=== PATIENT | male | born 1990 | race American Indian/Alaskan Native ===

== ENCOUNTER 2024-06-13 12:57 | Emergency (ER) | payer OTHER ==
[~2024-06-13] VITALS: Ht 170.2 cm; Wt 74.4 kg
== END 2024-06-13 14:13 | disposition home or self-care (01) ==
LOC: ER 12:57
DX: J06.9 Acute upper respiratory infection, unspecified (principal)
CPT/HCPCS: 99283

== ENCOUNTER 2024-07-29 18:26 | Observation (INO) | payer OTHER ==
[~2024-07-29] VITALS: Ht 167.6 cm; Wt 70.4 kg
[2024-07-29 18:58] LABS: BASOPHILS ABSOLUTE AUTO 0.06 K/mm3 (0.00-0.23); BASOPHILS PERCENT AUTO 0 % (0-2); EOSINOPHILS ABSOLUTE AUTO 0.03 K/mm3 (0.00-0.68); EOSINOPHILS PERCENT AUTO 0 % (0-6); Hematocrit 37.3 % (37.0-53.0); Hemoglobin 12.8 g/dL (13.5-17.5); IMMATURE GRAN ABSOLUTE AUTO 0.06 K/mm3 (0.00-0.10); IMMATURE GRAN PERCENT AUTO 0 % (0-1); LYMPHOCYTES ABSOLUTE AUTO 1.68 K/mm3 (0.84-5.20); LYMPHOCYTES PERCENT AUTO 12 % (21-46); MONOCYTES ABSOLUTE AUTO 0.37 K/mm3 (0.16-1.47); MONOCYTES PERCENT AUTO 3 % (4-13); Mean Corpuscular HGB 29.2 pg (26.0-34.0); Mean Corpuscular HGB Conc 34.3 g/dL (31.5-36.5); Mean Corpuscular Volume 85 fL (80-100); Mean Platelet Volume 11.7 fL (9.1-12.4); NEUTROPHILS PERCENT AUTO 85 % (41-73); Platelet Count 252 K/mm3 (150-400); RDW Coefficient Variation 12.5 % (11.7-14.2); RDW Standard Deviation 38.9 fL (35.1-46.3); Red Blood Cell Count 4.39 M/mm3 (4.30-5.90)
[2024-07-29] MEDS ORDERED: Lactated Ringer's 1,000 ML IV ONE ×3 (19:10→22:05)
[2024-07-29] MEDS ORDERED: Ondansetron HCl 2 MG / ML 2ML Vial IV ONE (19:10)
[2024-07-29 19:11] LABS: PCO2 Venous 30.6 mmHg (38-42); pH Blood Venous 7.34 (7.34-7.37)
[2024-07-29 19:12] LABS: Base Excess Venous -9.4 mmol/L; Bicarbonate Venous 17.8 mmol/L (24.0-30.0)
[2024-07-29 19:23] LABS: Albumin, Blood 4.2 g/dL (3.4-5.0); Albumin/Globulin Ratio 1.2 (0.8-1.8); Bilirubin, Total 1.2 mg/dL (0.1-1.0); Bun/Creatinine Ratio 32.1 (12.0-20.0); Calcium, Blood 9.6 mg/dL (8.5-10.1); Creatinine, Blood 1.06 mg/dL (0.60-1.20); Globulin, Blood 3.4 g/dL (2.2-4.0); Potassium, Blood 4.9 mmol/L (3.5-5.5); Total Protein, Blood 7.6 g/dL (6.4-8.2)
[2024-07-29] MEDS ORDERED: Droperidol 5 mg/2 ml Vial IV ONE ×2 (19:25→22:05)
[2024-07-29 19:36] LABS: Beta-hydroxybutyrate 52.9 mg/dL (0.2-2.8)
[2024-07-29 19:47] LABS: Source, Urine Clean Catch
[2024-07-29 19:55] LABS: Appearance, Urine Clear (Clear); Bilirubin, Urine Neg (Neg); Blood, Urine Neg (Neg); Color, Urine Pale Yellow (P-Yellow); Glucose Qualitative, Urine 4+ (Neg); Ketones, Urine 4+ (Neg); Leukocyte Esterase, Urine Neg (Neg); Nitrite, Urine Neg (Neg); Protein, Urine Neg (Neg); Specific Gravity, Urine 1.015 (1.003-1.022); Urobilinogen, Urine NORM (Normal)
[2024-07-29 20:18] LABS: Influenza A, PCR NEGATIVE (NEGATIVE); Influenza B, PCR NEGATIVE (NEGATIVE); Resp Syncytial Virus, PCR NEGATIVE (NEGATIVE); SARS-Cov-2 (COVID-19) PCR, MMC NEGATIVE (NEGATIVE)
[2024-07-29] MEDS ORDERED: Metoclopramide HCl 5MG / ML 2ML Vial IV ONE (21:15)
[2024-07-29 21:49] LABS: Calcium, Blood 9.5 mg/dL (8.5-10.1); Creatinine, Blood 1.06 mg/dL (0.60-1.20); Potassium, Blood 4.8 mmol/L (3.5-5.5)
[2024-07-29] MEDS ORDERED: Insulin Human Regular 100 UNIT in NS 100 ML IV SCH (22:00)
[2024-07-30] VITALS (12 sets, daily range): BP systolic 98–131; BP diastolic 57–79
[2024-07-30 00:15] LABS: Glucose, Blood 676 mg/dL (70-99)
[2024-07-30 00:50] LABS: Glucose, Blood 617 mg/dL (70-99)
[2024-07-30] MEDS ORDERED: FLU VACC TS2024-25(6MOS UP)/PF 45 MCG/0.5 ML SYRINGE IM SCH (00:55)
[2024-07-30] MEDS ORDERED: NS 1,000 ML IV SCH (00:55)
[2024-07-30] MEDS ORDERED: Ondansetron HCl 2 MG / ML 2ML Vial IV PRN (00:55)
[2024-07-30] MEDS ORDERED: Metoclopramide HCl 5MG / ML 2ML Vial IV PRN (00:55)
[2024-07-30] MEDS ORDERED: Insulin Human Regular 100 UNIT in NS 100 ML IV SCH (01:30)
[2024-07-30 02:24] LABS: Bun/Creatinine Ratio 30.8 (12.0-20.0); Calcium, Blood 9.3 mg/dL (8.5-10.1); Creatinine, Blood 1.2 mg/dL (0.60-1.20)
--- NOTE | 2024-07-30 03:50 | NUR ---
Pt arrives to unit. Pt is drowsy but oriented and answering questions appropriately. Sts nausea is controlled at this time. PT girlfriend, Tosin to room. Pt has insulin running at 4units/hr and LR at 150/hr. Call light provided to pt. Bed in lowest, locked position.
[2024-07-30] MEDS ORDERED: D5W-1/2NS 1,000 ML IV SCH (06:15)
[2024-07-30 08:01] LABS: BASOPHILS ABSOLUTE AUTO 0.04 K/mm3 (0.00-0.23); BASOPHILS PERCENT AUTO 0 % (0-2); EOSINOPHILS PERCENT AUTO 0 % (0-6); Hematocrit 31.7 % (37.0-53.0); Hemoglobin 10.9 g/dL (13.5-17.5); IMMATURE GRAN ABSOLUTE AUTO 0.13 K/mm3 (0.00-0.10); IMMATURE GRAN PERCENT AUTO 1 % (0-1); LYMPHOCYTES ABSOLUTE AUTO 2.04 K/mm3 (0.84-5.20); LYMPHOCYTES PERCENT AUTO 10 % (21-46); MONOCYTES ABSOLUTE AUTO 1.73 K/mm3 (0.16-1.47); MONOCYTES PERCENT AUTO 8 % (4-13); Mean Corpuscular HGB 28.7 pg (26.0-34.0); Mean Corpuscular HGB Conc 34.4 g/dL (31.5-36.5); Mean Corpuscular Volume 83 fL (80-100); Mean Platelet Volume 11.2 fL (9.1-12.4); NEUTROPHILS PERCENT AUTO 81 % (41-73); Platelet Count 233 K/mm3 (150-400); RDW Coefficient Variation 12.8 % (11.7-14.2); White Blood Cell Count 20.54 K/mm3 (4.00-11.30)
[2024-07-30 08:18] LABS: Albumin, Blood 3.3 g/dL (3.4-5.0); Albumin/Globulin Ratio 1.1 (0.8-1.8); Bilirubin, Total 0.5 mg/dL (0.1-1.0); Bun/Creatinine Ratio 31.1 (12.0-20.0); Calcium, Blood 9.1 mg/dL (8.5-10.1); Creatinine, Blood 1.06 mg/dL (0.60-1.20); Potassium, Blood 3.7 mmol/L (3.5-5.5); Total Protein, Blood 6.3 g/dL (6.4-8.2)
[2024-07-30] MEDS ORDERED: Enoxaparin 40 MG/0.4 ML SYR SC SCH (09:00)
[2024-07-30] MEDS ORDERED: Lactated Ringer's 1,000 ML IV SCH (10:45)
[2024-07-30] MEDS ORDERED: Potassium Chloride 20 MEQ TabCR PO ONE (11:00)
--- NOTE | 2024-07-30 11:11 | NUR ---
UPDATE IN CARE PER DR. ANDRWE, PT STARTED ON HOME INSULIN PUMP. DIET ORDERED. WILL TRANSITION OFF INSULING GTT PER PROTOCOL
--- NOTE | 2024-07-30 12:32 | NUR ---
PT transistioned from insulin gtt to home pump. Self bolusing per home parameters. Pt gave self 3.35 units insulin for lunch coverage.
[2024-07-30 14:29] LABS: Bun/Creatinine Ratio 32.1 (12.0-20.0); Calcium, Blood 9.1 mg/dL (8.5-10.1); Creatinine, Blood 1.09 mg/dL (0.60-1.20); Potassium, Blood 4.7 mmol/L (3.5-5.5)
[2024-07-30] MEDS ORDERED: Insulin Glargine-Yfgn 100 Unit/mL 3 ML SYR SC ONE (14:45)
[2024-07-30] MEDS ORDERED: Insulin Regular 100 UNIT/ML 10ML Vial SC ONE (15:17)
--- NOTE | 2024-07-30 15:21 | NUR ---
Dr. Aldrich notified. Patient called RN into room, patient's home glucose monitor was reading high. Checked with hospital glucometer and BG was in the 400s. Patient states that his site for home pump is probably bad, won't be able to have anyone bring in more supplies until tommorow. Alexandra ordered - see DEC.
[2024-07-30] MEDS ORDERED: Insulin Regular 100 UNIT/ML 10ML Vial SC SCH (16:30)
--- NOTE | 2024-07-30 18:22 | NUR ---
SHIFT SUMMARY Anion gap closed. Attempted to transition to home pump but it didn't function properly. Started sliding scale and long acting coverage. Pt's significant other was able to bring new pump supplies this evening, will set up with patient in the AM. N: AOX4 C: SR/ST on tele. R: Lungs clear, on room air GI/: Belly soft. Nauseous and vomiting when BG was elevated. Tollerating diet well. Voiding independently in urinal S: Intact Lines: Bilateral PIV
--- NOTE | 2024-07-30 20:16 | NUR ---
Assumed care of pt at 1900. Pt alert and oriented- cooperative with care, on phone w/ family. No distress oberseved. Pt on room air w/ clear lung sounds- o2 sats 98%. On cardiac nurse specialist- sinus rate of 90s. Bp stable w/ maps >65. Pt using urinal independently in room, good output. Denies nausea or other complaints at this time. Plan of care ongoing.
[2024-07-30 21:05] LABS: Bun/Creatinine Ratio 32.5 (12.0-20.0); Calcium, Blood 8.8 mg/dL (8.5-10.1); Creatinine, Blood 0.92 mg/dL (0.60-1.20); Potassium, Blood 3.9 mmol/L (3.5-5.5)
--- NOTE | 2024-07-30 22:44 | NUR ---
TRANSFER SUMMARY PT TO ROOM 311 VIA WHEELCHAIR ACCOMPANINED BY THIS RN. REPORT CALLED TO FATIMAH WHITMAN. PT AOX4 AND TRANSFERS TO BED W/ STEADY GAIT.
--- NOTE | 2024-07-30 23:11 | NUR ---
RECEIVED REPORT AND ASSUMED CARE OF PT. PT LYING QUIETLY IN BED, DENIES ANY NEEDS AT THIS TIME. CALL LIGHT IN REACH, BED IN LOWEST POSITION. ENCOURAGED PT TO NOTIFY STAFF OF ANY NEEDS OR CHANGES IN CONDITION/SYMPTOMS.
[2024-07-31 02:36] LABS: BASOPHILS ABSOLUTE AUTO 0.05 K/mm3 (0.00-0.23); BASOPHILS PERCENT AUTO 0 % (0-2); EOSINOPHILS ABSOLUTE AUTO 0.06 K/mm3 (0.00-0.68); EOSINOPHILS PERCENT AUTO 0 % (0-6); Hematocrit 32.5 % (37.0-53.0); Hemoglobin 11.3 g/dL (13.5-17.5); IMMATURE GRAN ABSOLUTE AUTO 0.06 K/mm3 (0.00-0.10); IMMATURE GRAN PERCENT AUTO 0 % (0-1); LYMPHOCYTES ABSOLUTE AUTO 3.55 K/mm3 (0.84-5.20); LYMPHOCYTES PERCENT AUTO 20 % (21-46); MONOCYTES ABSOLUTE AUTO 0.94 K/mm3 (0.16-1.47); MONOCYTES PERCENT AUTO 5 % (4-13); Mean Corpuscular HGB 29.1 pg (26.0-34.0); Mean Corpuscular HGB Conc 34.8 g/dL (31.5-36.5); Mean Corpuscular Volume 84 fL (80-100); Mean Platelet Volume 10.9 fL (9.1-12.4); NEUTROPHILS ABSOLUTE AUTO 13.58 K/mm3 (1.96-9.15); NEUTROPHILS PERCENT AUTO 74 % (41-73); Platelet Count 219 K/mm3 (150-400); RDW Coefficient Variation 13.1 % (11.7-14.2); RDW Standard Deviation 39.8 fL (35.1-46.3); Red Blood Cell Count 3.88 M/mm3 (4.30-5.90); White Blood Cell Count 18.24 K/mm3 (4.00-11.30)
[2024-07-31 02:57] LABS: Bun/Creatinine Ratio 27.2 (12.0-20.0); Calcium, Blood 8.5 mg/dL (8.5-10.1); Creatinine, Blood 0.88 mg/dL (0.60-1.20); Potassium, Blood 3.7 mmol/L (3.5-5.5)
[2024-07-31 03:19] VITALS: BP 107/73
--- NOTE | 2024-07-31 05:21 | NUR ---
SHIFT SUMMARY: TREY IS A&OX4. VSS, NO ACUTE EVENTS OVERNIGHT. HE IS TOLERATING PO INTAKE WELL, REPORTS POOR APPETITE. HE IS INDEPENDENT IN THE ROOM AND HAS DENIED PAIN THIS SHIFT. HE IS LYING IN BED WITH THE CALL LIGHT IN REACH, BED IN LOWEST POSITION. WILL GIVE REPORT TO DAY SHIFT RN.
[2024-07-31 07:37] VITALS: BP 123/80
[2024-07-31] MEDS ORDERED: Insulin Glargine-Yfgn 100 Unit/mL 3 ML SYR SC SCH (09:00)
[2024-07-31 09:13] LABS: Bun/Creatinine Ratio 24.6 (12.0-20.0); Calcium, Blood 8.4 mg/dL (8.5-10.1); Creatinine, Blood 0.93 mg/dL (0.60-1.20); Potassium, Blood 3.9 mmol/L (3.5-5.5)
[2024-07-31] MEDS ORDERED: Omeprazole 20 MG CapCR PO SCH (10:00)
[2024-07-31] MEDS ORDERED: INSPUMP SC (15:04)
[2024-07-31] MEDS ORDERED: Prilosec Otc20 MG PO (15:04)
[2024-07-31 15:09] VITALS: BP 123/90
--- NOTE | 2024-07-31 16:07 | NUR ---
SHIFT SUMMARY PT RESTING QUIETLY AT START OF SHIFT. WOKE EASILY FOR CARE. PLEASANT AND CO-OP, UP INDEPENDENTLY IN AND TO BTHRM. DR LEZAMA IN TO SEE PT AND DISCUSS PLAN OF CARE. PT ABLE TO USE HOME INSULIN PUMP WHILE HERE TO MAKE SURE EVERYTHING IS FUNCTIONING PROPERLY. DR LEZAMA CK'D ON PT THIS AFTERNOON. PT'S PUMP WORKING WELL AND ACCURATELY. PT ABLE TO D/C TO HOME. MEDS FAXED PER PT REQUEST. D/C INSTRUCTIONS REVIEWED WITH PT; VERBALIZED UNDERSTANDING. PT WANTING TO WALK OUT HIMSELF. ALL BELONGINGS WENT WITH PT.
== END 2024-07-31 17:24 | disposition home or self-care (01) ==
LOC: ER 18:26 → ICUE 18:27 → MEDS 18:27 → ERHOLD 18:27 → ICUE 07-30 03:40 → MEDS 07-30 23:12
PROVIDERS: Internal Medicine; Student in an Organized Health Care Education/Training Program; ADMIT Internal Medicine
DX: E10.10 Type 1 diabetes mellitus with ketoacidosis without coma (principal); E86.0 Dehydration; E87.1 Hypo-osmolality and hyponatremia; K20.90 Esophagitis, unspecified without bleeding
CPT/HCPCS: 0241U; 36415; 74177; 80048; 80053; 81003; 82010; 82803; 82947; 83690; 83735; 83880; 85025; 93005; 93010; 96361; 96372; 96374-59; 96375; 96376; 99285-25; A9270; G0378; J1650; J1790; J1815; J2405; J2765; J7120; Q9967